=== PATIENT | female | born 2000 | race Hispanic/Latino ===

== ENCOUNTER 2022-08-08 17:49 | Emergency (ER) | payer OTHER ==
[~2022-08-08] VITALS: Ht 152.4 cm; Wt 79.4 kg
[2022-08-08 20:19] VITALS: BP 124/81
== END 2022-08-08 20:21 | disposition home or self-care (01) ==
LOC: EDH 17:49
DX: Z04.1 Encounter for examination and observation following transport accident (principal)
CPT/HCPCS: 71045